=== PATIENT | female | born 1970 | race Caucasian/White ===

== ENCOUNTER 2020-12-02 00:21 | Emergency (ER) | payer MEDICARE, MEDICAID ==
[2020-12-02 00:38] VITALS: BP 148/95; PULSE 91
[2020-12-02] MEDS ORDERED: Cetirizine 10 MG Tab PO ONE (00:54)
[2020-12-02] MEDS ORDERED: hydrOXYzine HCl 25 MG Tab PO ONE (00:54)
[2020-12-02] MEDS ORDERED: methylPREDNISolone Sodium Succinate 125 MG/2 ML SDV IM ONE (00:54)
--- NOTE | 2020-12-02 01:00 | EDM.PDOC ---
ED HPI GENERAL MEDICAL PROBLEM - General Chief Complaint: Allergic Reaction Stated Complaint: BODY ACHES/HIVES Time Seen by Provider: 12/02/20 00:35 Source of Information: Reports: Patient History Limitations: Reports: No Limitations - History of Present Illness INITIAL COMMENTS - FREE TEXT/NARRATIVE: Taina is a 50-year-old female presenting to the ED for evaluation of hives, e xtreme pruritus, erythema of the feet, generalized body aches, rhinorrhea, and hyperlacrimation. Patient states that she has had body aches, rhinitis, and a sore throat for the last couple of days. Today she awoke and started to develop hives that were quite pruritic. She has had increased lacrimation, redness around her eyes, and itchy eyes. She has had significant nasal congestion and postnasal drip. She denies any shortness of breath or cough. She has been trying to treat her symptoms with DayQuil and NyQuil without much relief. Today with the hives she took Benadryl 25 mg this morning and followed it with an additional 25 mg an hour later. Despite the fact that she is prescribed hydroxyzine for her anxiety, she has not taken any hydroxyzine and is now bouncing on the bed because of the severe itching. She denies any fever or chills. She has had no nausea, vomiting, or diarrhea. She denies any constipation. She has had no urinary symptoms including urgency, frequency, or burning. - Related Data Allergies Allergy/AdvReac Type Severity Reaction Status Date / Time shellfish derived Allergy Airway Verified 12/02/20 00:37 Tightness Home Meds: Home Meds Cholecalciferol (Vitamin D3) [Vitamin D3] 1 tab PO BEDTIME 02/17/16 [History] Estradiol 1 tab PO BEDTIME 02/17/16 [History] Gabapentin 1,200 mg PO BEDTIME 02/17/16 [History] Venlafaxine HCl [Venlafaxine ER] 1 tab PO BEDTIME 02/17/16 [History] atorvaSTATin Calcium [Atorvastatin Calcium] 20 mg PO DAILY 12/02/20 [History] clonazePAM [Clonazepam] 1 mg PO BEDTIME 12/02/20 [History] diphenhydrAMINE HCL [Benadryl] 25 mg PO ASDIRECTED PRN 12/02/20 [History] hydrOXYzine HCL [Atarax] 25 mg PO TID PRN 12/02/20 [History] Past Medical History HEENT History: Reports: None Cardiovascular History: Reports: Hypertension Respiratory History: Reports: None Gastrointestinal History: Reports: Cholelithiasis SOCK KNITTER History: Reports: Other (See Below) Other SOCK KNITTER History: 2 c sections Other Musculoskeletal History: right broken ankle. fractured ribs Psychiatric History: Reports: Anxiety, Depression Endocrine/Metabolic History: Reports: Obesity/BMI 30+ Other Endocrine/Metabolic History: pre diabetic Dermatologic History: Reports: Psoriasis - Infectious Disease History Infectious Disease History: Reports: None - Past Surgical History GI Surgical History: Reports: Appendectomy, Cholecystectomy Female Surgical History: Reports: Section, Hysterectomy Social & Family History - Tobacco Use Tobacco Use Status *Q: Never Tobacco User ED ROS ALLERGIC REACTION - Review of Systems Review Of Systems: See Below Constitutional: Reports: Malaise HEENT: Reports: Rhinitis, Throat Pain, Other (Hyperlacrimation, itchy burning eyes, redness of the eyes.) Respiratory: Reports: No Symptoms Cardiovascular: Reports: No Symptoms Endocrine: Reports: No Symptoms GI/Abdominal: Reports: No Symptoms : Reports: No Symptoms Musculoskeletal: Reports: Muscle Pain (Generalized body aches) Skin: Reports: Pruritis (Generalized), Erythema (Of the feet), Urticaria (Generalized) Neurological: Reports: No Symptoms Psychiatric: Reports: Anxiety Hematologic/Lymphatic: Reports: No Symptoms Immunologic: Reports: Seasonal Allergy (Probable) ED EXAM GENERAL NO PERIP PULSE - Physical Exam Exam: See Below Exam Limited By: No Limitations General Appearance: Alert, Anxious (Very anxious), Mild Distress Eye Exam: Bilateral Eye: Conjunctival Injection, EOMI, Periorbital Changes (Periorbital erythema), PERRL, Other (Hyperlacrimation) Nose: Nasal Swelling, Clear Rhinorrhea Throat/Mouth: Normal Inspection, Normal Oropharynx, Other (Postnasal mucus without significant retropharyngeal erythema. No exudates.) Head: Atraumatic, Normocephalic Neck: Normal Inspection, Supple. No: Lymphadenopathy (R), Lymphadenopathy (L) Respiratory/Chest: No Respiratory Distress, Lungs Clear, Normal Breath Sounds Cardiovascular: Normal Peripheral Pulses, Regular Rate, Rhythm, No Murmur GI/Abdominal: Normal Bowel Sounds, Soft, Non-Tender Extremities: Normal Inspection, No Pedal Edema Neurological: Alert, Oriented, Normal Cognition, No Motor/Sensory Deficits Psychiatric: Anxious Skin Exam: Warm, Erythema (Bilateral plantar surfaces), Rash (Urticaria) Lymphatic: No Adenopathy Course - Vital Signs Last Recorded V/S: Last Vital Signs Temp 36.8 C 12/02/20 00:33 Pulse 91 12/02/20 00:33 Resp 18 12/02/20 00:33 BP 148/95 H 12/02/20 00:33 Pulse Ox 98 12/02/20 00:33 - Orders/Labs/Meds Labs: Laboratory Tests 12/02/20 12/02/20 Range/Units 01:00 01:00 WBC 7.2 (4.5-11.0) K/uL RBC 4.90 (3.30-5.50) M/uL Hgb 14.0 (12.0-15.0) g/dL Hct 44.0 (36.0-48.0) % MCV 90 (80-98) fL MCH 29 (27-31) pg MCHC 32 (32-36) % Plt Count 294 (150-400) K/uL Neut % (Auto) 52 (36-66) % Lymph % (Auto) 30 (24-44) % [place] % (Auto) 16 H (2-6) % Eos % (Auto) 1 L (2-4) % Baso % (Auto) 1 (0-1) % C-Reactive Protein 0.76 H (0.0-0.3) mg/dL Meds: Medications Discontinued Medications Generic Name Dose Route Start Last Admin Trade Name Freq PRN Reason Stop Dose Admin Cetirizine HCl 10 mg 12/02/20 00:54 12/02/20 01:03 Cetirizine 10 Mg Tab PO 12/02/20 00:55 10 mg ONETIME ONE Administration Hydroxyzine HCl 25 mg 12/02/20 00:54 12/02/20 01:03 Hydroxyzine Hcl 25 Mg Tab PO 12/02/20 00:55 25 mg ONETIME ONE Administration Methylprednisolone Sodium Succinate 125 mg 12/02/20 00:54 12/02/20 01:03 Methylprednisolone Sodium Succinate 125 Mg/2 Ml Sdv IM 12/02/20 00:55 125 mg ONETIME ONE Administration - Re-Assessments/Exams Free Text/Narrative Re-Assessment/Exam: 12/02/20 01:00 based on my examination, this is a significant seasonal allergy response with hyper lacrimation, conjunctival injection, and periorbital erythema and edema. The patient has significant rhinitis and nasal congestion with postnasal drip likely causing her sore throat. There is no evidence for any tonsillar swelling, significant erythema, or exudates. There is no lymphadenopathy in the cervical spine. She does have urticaria which is quite pruritic. In addition she has erythema of the palms and plantar surfaces. We will get a CBC and a CRP. I have ordered cetirizine 10 mg p.o., Solu-Medrol 125 mg IM, and hydroxyzine 25 mg p.o. The patient does have both cats and dogs at home which are not new. It is possible that this is a seasonal allergy related to pollen especially [place] pollen this time of the year. We will see how she responds to this cocktail of medication. There is no significant difficulty with swallowing or shortness of breath to suggest an anaphylactic type reaction. 12/02/20 01:24 I reviewed the labs with a normal CBC. The eosinophil count is slightly low at 1. The CRP is normal. Again this is looking like seasonal allergies. My recommendation is cetirizine or Maegan or Claritin daily. She may use her hydroxyzine nightly for anxiety but for itching. She should try discontinuing using the DayQuil and NyQuil as they are not for allergies. Departure - Departure Time of Disposition: 01:37 Disposition: Home, Self-Care 01 Clinical Impression: Urticaria, Pruritus Allergic rhinitis due to allergen Qualifiers: Allergic rhinitis trigger: unspecified Allergic rhinitis seasonality: seasonal Qualified Code(s): J30.2 - Other seasonal allergic rhinitis - Discharge Information Instructions: Pruritus, Hives, Allergic Rhinitis, Adult, [id number] Referrals: Ramy Kendall MD [Primary Care Provider] - Forms: ED Department Discharge Care Plan Goals: I recommend starting one of the [id number] allergy medicines like cetirizine, Maegan, or Claritin. I also recommend Benadryl as the antihi stamine instead of DayQuil or NyQuil as they have no antihistamine properties. Given this time of the year, it would not be unusual for you to be having allergic reaction to tree pollen especially [place] floors like pine trees. The sore throat is likely due to the postnasal drip from the allergic rhinitis (runny nose). You may also use your hydroxyzine that you take for anxiety for itching. I would not take it more than 3 times a day as it is prescribed for your anxiety. Sepsis Event Note (ED) - Evaluation Sepsis Screening Result: No Definite Risk - Focused Exam Vital Signs: Vital Signs Temp Pulse Resp BP Pulse Ox 12/02/20 00:33 36.8 C 91 18 148/95 H 98 - Problem List & Annotations (1) Allergic rhinitis due to allergen SNOMED Code(s): 71213814 Code(s): J30.9 - ALLERGIC RHINITIS, UNSPECIFIED Status: Acute Priority: Medium Current Visit: Yes Qualifiers: Allergic rhinitis trigger: unspecified Allergic rhinitis seasonality: seasonal Qualified Code(s): J30.2 - Other seasonal allergic rhinitis (2) Pruritus SNOMED Code(s): 470869532 Code(s): L29.9 - PRURITUS, UNSPECIFIED Status: Acute Priority: Medium Current Visit: Yes (3) Urticaria SNOMED Code(s): 918272332 Code(s): L50.9 - URTICARIA, UNSPECIFIED Status: Acute Priority: Medium Current Visit: Yes - Problem List Review Problem List Initiated/Reviewed/Updated: Yes
== END 2020-12-02 01:44 | disposition home or self-care (01) ==
LOC: JP.ED 00:21
DX: J30.2 Other seasonal allergic rhinitis (principal); L50.9 Urticaria, unspecified; L29.9 Pruritus, unspecified; I10 Essential (primary) hypertension; E66.9 Obesity, unspecified; Z91.013 Allergy to seafood; Z79.899 Other long term (current) drug therapy; Z68.39 Body mass index [BMI] 39.0-39.9, adult
CPT/HCPCS: 36415; 85025; 86140; 96372; 99283; A9270; J2930

== ENCOUNTER 2021-09-07 17:05 | Emergency (ER) | payer MEDICARE, MEDICAID ==
[2021-09-07] MEDS ORDERED: Sodium Chloride 0.9% 10 ML Syringe FLUSH PRN (17:49)
[2021-09-07] MEDS ORDERED: Ondansetron 4 MG/2 ML SDV IVPUSH ONE (17:54)
[2021-09-07] MEDS ORDERED: Sodium Chloride 0.9% 500 ML IV SCH (18:00)
[2021-09-07 18:08] LABS: CORONAVIRUS COVID-19 NAA POSITIVE (NEGATIVE)
[2021-09-07 18:10] VITALS: BP 111/75; PULSE 74
== END 2021-09-07 19:22 | disposition home or self-care (01) ==
LOC: JP.ED 17:05
DX: U07.1 COVID-19 (principal); R11.2 Nausea with vomiting, unspecified; I10 Essential (primary) hypertension; E66.9 Obesity, unspecified; Z68.38 Body mass index [BMI] 38.0-38.9, adult; Z91.013 Allergy to seafood; Z79.899 Other long term (current) drug therapy
CPT/HCPCS: 0241U; 96374; 99284; J2405; J7030

== ENCOUNTER 2021-12-09 06:36 | Day surgery (SDC) | payer MEDICARE, MEDICAID ==
[2021-12-09] MEDS ORDERED: Midazolam 1 MG/ML 2 ML SDV ONE (06:58)
[2021-12-09] MEDS ORDERED: fentaNYL 100 MCG/2 ML SDV ONE (06:58)
[2021-12-09] MEDS ORDERED: Propofol 200 MG/20 ML SDV ONE (06:58)
[2021-12-09] MEDS ORDERED: Lactated Ringers 1,000 ML IV SCH (07:30)
[2021-12-09 09:55] VITALS: BP 111/63; PULSE 76
== END 2021-12-09 10:00 | disposition home or self-care (01) ==
LOC: JP.SDS 06:36
PROVIDERS: ATTEND Family Medicine
DX: Z12.11 Encounter for screening for malignant neoplasm of colon (principal); D12.8 Benign neoplasm of rectum; G47.33 Obstructive sleep apnea (adult) (pediatric); K21.9 Gastro-esophageal reflux disease without esophagitis; E78.5 Hyperlipidemia, unspecified; Z98.890 Other specified postprocedural states; Z88.8 Allergy status to other drugs, medicaments and biological substances; Z90.49 Acquired absence of other specified parts of digestive tract
CPT/HCPCS: J2250; J2704; J3010; J7120